=== PATIENT | female | born 1960 | race Caucasian/White ===

== ENCOUNTER 2019-08-13 05:57 | Emergency (ER) | payer OTHER ==
[2019-08-13] MEDS ORDERED: Albuterol/Ipratropium 3.0-0.5 MG/3 ML Neb Soln ONE (06:02)
--- NOTE | 2019-08-13 06:07 | EDM.PDOC ---
ED HPI GENERAL MEDICAL PROBLEM - General Stated Complaint: TROUBLE BREATHING Time Seen by Provider: 08/13/19 06:00 Source of Information: Reports: Patient, Family History Limitations: Reports: Respiratory Distress - History of Present Illness INITIAL COMMENTS - FREE TEXT/NARRATIVE: 59-year-old female arrives to the emergency room in respiratory distress. She has apparently been ill with flulike symptoms and cough for several weeks, was in the clinic at some point but I believe it was felt to be viral. Over the last 3 days she has become much worse, the last 3 or 4 hours she has become severely short of breath. When she arrived to the emergency room she was dusky , mottled, could only speak 1 word at a time and was in severe distress. She denied any fever but did complain of some left upper quadrant and left chest pain for the past several days. Otherwise we really could not get much history from the patient. Preparations were made for emergency treatment of respiratory distress Onset: Gradual Duration: Week(s): (Symptoms up to 3 weeks according to her son) Associated Symptoms: Reports: Cough, Malaise, Shortness of Breath, Weakness - Related Data Allergies Allergy/AdvReac Type Severity Reaction Status Date / Time amoxicillin [Amoxicillin] AdvReac Nausea and Verified 11/12/13 10:56 Vomiting Home Meds: Home Meds Albuterol Sulfate [Proair Hfa] 2 puff IH Q4HR PRN 11/08/13 [History] Amitriptyline [Elavil] 30 mg PO DAILY 11/08/13 [History] Aspirin 325 mg PO DAILY 11/08/13 [History] Cholecalciferol (Vitamin D3) [Vitamin D] 4,000 units PO DAILY 11/08/13 [History] DULoxetine [Cymbalta] 60 mg PO DAILY 11/08/13 [History] Diclofenac Sodium [Voltaren 1%] 1 applic TOP BID PRN 11/08/13 [History] Estrogens, Conjugated [Premarin] 0.3 mg PO DAILY 11/08/13 [History] Lisinopril/Hydrochlorothiazide [Lisinopril-Hctz 10-12.5 mg Tab] 1 each PO DAILY 11/08/13 [History] [place] Carbonate [Eskalith CR] 450 mg PO BEDTIME 11/08/13 [History] Methadone 5 mg PO Q8HR 11/08/13 [History] [place]-3 Fatty Acids [[place]-3] 1,000 mg PO DAILY 11/08/13 [History] Urea [X-Viate] 28.3 gm TP BID 11/08/13 [History] modafiniL [Provigil] 150 mg PO BID 11/08/13 [History] ED ROS GENERAL - Review of Systems Review Of Systems: See Below Constitutional: Reports: Malaise, Weakness HEENT: Denies: Throat Pain Respiratory: Reports: Shortness of Breath, Cough Cardiovascular: Reports: Chest Pain (Left lateral chest pain and left upper abdominal pain) Skin: Reports: Pallor Neurological: Denies: Headache Free Text/Narrative/Comment: Only a very brief selective review of systems was obtainable as the patient was prepared for intubation and was confused and not answering questions consistently. ED EXAM, GENERAL - Physical Exam Exam: See Below Exam Limited By: Respiratory Distress General Appearance: Alert, Severe Distress Eye Exam: Bilateral Eye: PERRL Throat/Mouth: Normal Inspection Head: Atraumatic Respiratory/Chest: Other (Widespread inspiratory and expiratory wheezes, significant rhonchi heard bilaterally) Cardiovascular: Regular Rate, Rhythm, Tachycardia GI/Abdominal: Soft, Tender (Prior to intubation the patient did react with some tenderness to palpation along the left upper) Extremities: Other (Hands and feet were dusky). No: Pedal Edema Neurological: Alert, Confused, Other (Patient was alert but confused due to hypoxia) Skin Exam: Cyanosis (Some cyanosis developing to the extremities and posterior shoulders) Course - Vital Signs Last Recorded V/S: Last Vital Signs Temp 96.9 F 08/13/19 06:19 Pulse 119 H 08/13/19 07:26 Resp 16 08/13/19 07:26 BP 127/73 08/13/19 07:26 Pulse Ox 95 08/13/19 07:26 - Orders/Labs/Meds Labs: Laboratory Tests 08/13/19 08/13/19 08/13/19 Range/Units 06:15 06:15 06:34 WBC 19.0 H (4.5-11.0) K/uL RBC 4.61 (3.30-5.50) M/uL Hgb 15.7 H (12.0-15.0) g/dL Hct 46.0 (36.0-48.0) % MCV 100 H (80-98) fL MCH 34 H (27-31) pg MCHC 34 (32-36) % Plt Count 382 (150-400) K/uL Add Manual Diff Yes Neutrophils % (Manual) 48 (36-66) % Band Neutrophils % 32 H (5-11) % Lymphocytes % (Manual) 11 L (24-44) % Monocytes % (Manual) 5 (2-6) % Eosinophils % (Manual) 1 L (2-4) % Blast Cells % 1 % Puncture Site Lt radial ABG pH 7.192 L* (7.350-7.450) ABG pCO2 51.5 H (35.0-42.0) mmHg ABG pO2 86.3 (75.0-100.0) mmHg ABG HCO3 19.0 L (22.0-26.0) mmol/L ABG Total CO2 17.3 L (21.0-25.0) mmol/L ABG O2 Saturation 90.2 L (95.0-98.0) % ABG O2 Content 20.0 (15.0-23.0) %vol ABG Base Excess -9.5 mm/L ABG Hemoglobin 15.9 (12.0-16.0) g/dL ABG Oxyhemoglobin 89.1 % ABG Carboxyhemoglobin 0.4 (0.0-1.6) % ABG Methemoglobin 0.8 % Todd Test Pass O2 Delivery Device Non rebr mask Oxygen Flow Rate 10 L Sodium 132 L (140-148) mmol/L Potassium 2.9 L* (3.6-5.2) mmol/L Chloride 91 L (100-108) mmol/L Carbon Dioxide 17 L (21-32) mmol/L Anion Gap 26.9 H (5.0-14.0) mmol/L BUN 36 H (7-18) mg/dL Creatinine 2.2 H (0.6-1.0) mg/dL Est Cr Clr Drug Dosing TNP Estimated GFR (MDRD) 23 L (>60) Glucose 98 (74-106) mg/dL Lactic Acid (0.4-2.0) mmol/L Calcium 9.4 (8.5-10.1) mg/dL Total Bilirubin 1.2 H (0.2-1.0) mg/dL AST 288 H (15-37) U/L ALT 98 H (12-78) U/L Alkaline Phosphatase 97 (46-116) U/L Troponin I < 0.017 (0.000-0.056) ng/mL Total Protein 7.9 (6.4-8.2) g/dL Albumin 1.9 L (3.4-5.0) g/dL Globulin 6.0 H (2.3-3.5) g/dL Albumin/Globulin Ratio 0.3 L (1.2-2.2) 08/13/19 Range/Units 06:34 WBC (4.5-11.0) K/uL RBC (3.30-5.50) M/uL Hgb (12.0-15.0) g/dL Hct (36.0-48.0) % MCV (80-98) fL MCH (27-31) pg MCHC (32-36) % Plt Count (150-400) K/uL Add Manual Diff Neutrophils % (Manual) (36-66) % Band Neutrophils % (5-11) % Lymphocytes % (Manual) (24-44) % Monocytes % (Manual) (2-6) % Eosinophils % (Manual) (2-4) % Blast Cells % % Puncture Site ABG pH (7.350-7.450) ABG pCO2 (35.0-42.0) mmHg ABG pO2 (75.0-100.0) mmHg ABG HCO3 (22.0-26.0) mmol/L ABG Total CO2 (21.0-25.0) mmol/L ABG O2 Saturation (95.0-98.0) % ABG O2 Content (15.0-23.0) %vol ABG Base Excess mm/L ABG Hemoglobin (12.0-16.0) g/dL ABG Oxyhemoglobin % ABG Carboxyhemoglobin (0.0-1.6) % ABG Methemoglobin % Todd Test O2 Delivery Device Oxygen Flow Rate L Sodium (140-148) mmol/L Potassium (3.6-5.2) mmol/L Chloride (100-108) mmol/L Carbon Dioxide (21-32) mmol/L Anion Gap (5.0-14.0) mmol/L BUN (7-18) mg/dL Creatinine (0.6-1.0) mg/dL Est Cr Clr Drug Dosing Estimated GFR (MDRD) (>60) Glucose (74-106) mg/dL Lactic Acid 8.7 H (0.4-2.0) mmol/L Calcium (8.5-10.1) mg/dL Total Bilirubin (0.2-1.0) mg/dL AST (15-37) U/L ALT (12-78) U/L Alkaline Phosphatase (46-116) U/L Troponin I (0.000-0.056) ng/mL Total Protein (6.4-8.2) g/dL Albumin (3.4-5.0) g/dL Globulin (2.3-3.5) g/dL Albumin/Globulin Ratio (1.2-2.2) Meds: Medications Discontinued Medications Generic Name Dose Route Start Last Admin Trade Name Freq PRN Reason Stop Dose Admin Albuterol/Ipratropium Confirm 08/13/19 06:02 08/13/19 07:14 Duoneb 3.0-0.5 Mg/3 Ml Administered 08/13/19 06:03 Not Given Dose 3 ml .ROUTE .STK-MED ONE Albuterol/Ipratropium 3 ml 08/13/19 06:45 08/13/19 06:05 Duoneb 3.0-0.5 Mg/3 Ml NEB 08/13/19 06:46 3 ml ONETIME ONE Administration Albuterol/Ipratropium 3 ml 08/13/19 07:05 08/13/19 07:14 Duoneb 3.0-0.5 Mg/3 Ml NEB 08/13/19 07:06 Not Given ONETIME ONE Etomidate 30 mg 08/13/19 07:19 08/13/19 07:22 Amidate IVPUSH 08/13/19 07:20 30 mg ONETIME ONE Administration Propofol Confirm 08/13/19 06:36 08/13/19 06:42 Diprivan 100 Ml Administered 08/13/19 06:37 Not Given Dose 100 mls @ as directed .ROUTE .STK-MED ONE Propofol 100 mls @ 2.73 mls/hr 08/13/19 06:45 08/13/19 07:14 Diprivan 100 Ml IV 20 mcg/kg/min TITRATE ERICKSON 10.92 mls/hr Titration Protocol 5 MCG/KG/MIN Piperacillin Sod/Tazobactam 100 mls @ 100 mls/hr 08/13/19 06:44 08/13/19 07: 04 Sod 4.5 gm/ Sodium Chloride IV 08/13/19 07:43 100 mls/hr ONETIME ONE Administration Levofloxacin/Dextrose 750 mg/ 150 mls @ 100 mls/hr 08/13/19 06:44 08/13/19 06 :52 Premix IV 08/13/19 08:13 100 mls/hr ONETIME ONE Administration Propofol 100 mg 08/13/19 06:45 Diprivan 20 Ml .ROUTE 08/13/19 06:46 .STK-MED ONE Rocuronium [place] 50 mg 08/13/19 06:33 08/13/19 07:17 Zemuron IVPUSH 08/13/19 06:34 50 mg NOW ONE Administration Rocuronium [place] Confirm 08/13/19 06:33 08/13/19 07:18 Zemuron Administered 08/13/19 06:34 Not Given Dose 50 mg .ROUTE .STK-MED ONE Succinylcholine Chloride Confirm 08/13/19 06:18 08/13/19 07:16 Quelicin Administered 08/13/19 06:19 Not Given Dose 200 mg .ROUTE .STK-MED ONE Succinylcholine Chloride 75 mg 08/13/19 06:30 08/13/19 06:25 Quelicin IV 08/13/19 06:31 75 mg ONETIME ONE Administration - Re-Assessments/Exams Free Text/Narrative Re-Assessment/Exam: 08/13/19 07:02 Patient was given a nonrebreather, 10 L of oxygen and after the initial physical exam a DuoNeb was ordered. An urgent 1 view chest x-ray was obtained which showed a complete whiteout of the left lung, the right lung was clear. At this point the focus was shifted from congestive heart failure to pneumonia treatment. Preparations were made for intubation. Patient was given 75 mg of succinylcholine, then 30 mg of etomidate and then with the assistance of a glide scope was intubated with a 7.0 ET tube. O2 saturations dropped to 85% during intubation briefly. Patient was then given a propofol drip for sedation as well as 50 mg of rocuronium. Blood gases returned with a pH of 7.16, PCO2 was 55.5. A brief phone consultation with the hospitalist service here in [place] recommended transfer because of the patient's significant infectious state, young age, and the benefit of having infectious disease and pulmonology as well as critical care in [place]. After blood cultures were obtained, 4.5 g of IV Zosyn and 750 mg of IV levofloxacin was started. Patient remained stable and sedated and was transferred by air after being accepted by at 6: 40 AM, will be going to [facility]. Total critical care time was 90 minutes. 08/13/19 07:16 White count was 19,000, hemoglobin 15.7. Troponin was 0. 08/13/19 07:16 Lactic acid 8.7, creatinine 2.2. Aggressive hydration was continued. Arrangements were made for the patient to be flown to [place]. Departure - Departure Time of Disposition: 08:32 Disposition: DC/Tfer to [facility] 02 Condition: Critical Clinical Impression: Acute respiratory distress Pneumonia Qualifiers: Pneumonia type: due to unspecified organism Laterality: left Lung location: unspecified part of lung Qualified Code(s): J18.9 - Pneumonia, unspecified organism - Discharge Information Referrals: PCP,None [Primary Care Provider] - Forms: ED Department Discharge Critical Care Note - Critical Care Note Total Time (mins): 90 Sepsis Event Note - Focused Exam Date Exam was Performed: 08/17/19 Time Exam was Performed: 07:09
[2019-08-13] MEDS ORDERED: Succinylcholine 200 MG/10 ML MDV ONE (06:18)
[2019-08-13] MEDS ORDERED: Succinylcholine 200 MG/10 ML MDV IV ONE (06:30)
[2019-08-13] MEDS ORDERED: Rocuronium 50 MG/5 ML Vial IVPUSH ONE (06:33)
[2019-08-13] MEDS ORDERED: Rocuronium 50 MG/5 ML Vial ONE (06:33)
[2019-08-13] MEDS ORDERED: propofoL 100 ML ONE (06:36)
[2019-08-13] MEDS ORDERED: Piperacillin/Tazobactam 4.5 GM in Sodium Chloride 0.9% 100 ML IV ONE (06:44)
[2019-08-13] MEDS ORDERED: Levofloxacin/Dextrose 5%-Water 750 MG in Premix Bag 1 BAG IV ONE (06:44)
[2019-08-13] MEDS ORDERED: Propofol 200 MG/20 ML SDV ONE (06:45)
[2019-08-13] MEDS ORDERED: Albuterol/Ipratropium 3.0-0.5 MG/3 ML Neb Soln NEB ONE ×2 (06:45→07:05)
[2019-08-13] MEDS ORDERED: propofoL 100 ML IV SCH (06:45)
--- NOTE | 2019-08-13 06:51 | CRLCR ---
INDICATION: Dyspnea TECHNIQUE: Chest 1 view. COMPARISON: None FINDINGS: There is completely opacification of the left upper lobe with minimal air bronchograms noted. There is less dense opacity in the left retrocardiac region. The left lung base is relatively spared. There is consolidation in the medial right apex. No definite pleural effusion. No pneumothorax. No acute osseous abnormality identified. IMPRESSION: Dense consolidation in the left upper lobe as well as less dense opacity in the left retrocardiac region and consolidation in the medial right apex. CT chest may be useful for further evaluation. Dictated by Joey Wyatt MD @ 08/13/2019 6:49:23 AM Dictated by: Joey Wyatt MD @ 08/13/2019 06:49:28 (Electronically Signed)
--- NOTE | 2019-08-13 07:05 | CRLCR ---
INDICATION: Post intubation. COMPARISON: Chest x-ray done earlier same day. FINDINGS: Two portable AP views of the chest obtained. One timed at 06:42 hours and the other at 06:44 hours. There has been placement of a endotracheal tube. The fill the timed at 06:42 hours the endotracheal tube tip is 1.2 cm above the scott. On the film timed 06:44 hours the endotracheal tube tip is now 2.2 cm above the scott. There is continued dense consolidation in the left upper lobe similar to the previous the study. There is also consolidation in the medial right apex similar the previous the study. The cardiac silhouette is stable. The pulmonary vasculature is within normal limits. IMPRESSION: Interval placement and endotracheal tube with the tip 2.2 cm above the scott on the film time 06:44hours. Continued dense consolidation left upper lobe and a consolidation in the medial right apex. Dictated by Terrell Adams MD @ 08/13/2019 7:04:32 AM Dictated by: Terrell Adams MD @ 08/13/2019 07:04:39 (Electronically Signed)
[2019-08-13] MEDS ORDERED: Etomidate 2 MG/ML 20 ML SDV IVPUSH ONE (07:19)
--- NOTE | 2019-08-15 09:15 | CRLCR ---
INDICATION: Post intubation. COMPARISON: Chest x-ray done earlier same day. FINDINGS: Two portable AP views of the chest obtained. One timed at 06:42 hours and the other at 06:44 hours. There has been placement of a endotracheal tube. The fill the timed at 06:42 hours the endotracheal tube tip is 1.2 cm above the scott. On the film timed 06:44 hours the endotracheal tube tip is now 2.2 cm above the scott. There is continued dense consolidation in the left upper lobe similar to the previous the study. There is also consolidation in the medial right apex similar the previous the study. The cardiac silhouette is stable. The pulmonary vasculature is within normal limits. IMPRESSION: Interval placement and endotracheal tube with the tip 2.2 cm above the scott on the film time 06:44hours. Continued dense consolidation left upper lobe and a consolidation in the medial right apex. Dictated by Terrell Adams MD @ 08/13/2019 7:04:32 AM Dictated by: Terrell Adams MD @ 08/13/2019 07:04:39 (Electronically Signed) Dictated by: Terrell Adams MD 08/13/19 at 0704 , 0647 T: , Doc Number: [id number] Copies To: Leon Barrientos MD; PCP,None~ MTDD
== END 2019-08-13 07:40 ==
LOC: JP.ED 05:57
DX: J18.9 Pneumonia, unspecified organism (principal); Z88.1 Allergy status to other antibiotic agents; Z79.899 Other long term (current) drug therapy
CPT/HCPCS: 31500; 36415; 36600; 51702; 71045; 80053; 82803; 83605; 84484; 85025; 87040; 87077; 87184; 94640; 96365; 96368; 99291; 99292; J0330; J1956; J2543; J2704; J3490; J7050; J7620-GY

== ENCOUNTER 2019-09-13 22:10 | Emergency (ER) | payer OTHER ==
[2019-09-13] MEDS ORDERED: LORazepam 0.5 MG Tab PO ONE (23:00)
--- NOTE | 2019-09-14 00:16 | EDM.PDOC ---
ED HPI GENERAL MEDICAL PROBLEM - General Chief Complaint: Cardiovascular Problem Stated Complaint: HIGH BLOOD PRESSURE Time Seen by Provider: 09/13/19 23:50 - History of Present Illness INITIAL COMMENTS - FREE TEXT/NARRATIVE: This is a 59-year-old female with recent hospitalization for pneumonia and septic shock complicated by renal failure who presents with concerns of hypertension. She returned from a trip to [place] this evening, was delayed getting her antihypertensive agents taken, and noted her SBP's to be in the 170s. She became very anxious about this, rechecking her blood pressure repeatedly and noting recurrent high pressures. She denies any dyspnea or chest pain. She reports that she was recently seen by her manager camp in [place] and that her cardiac function is good, EF of approximately 45%. Treatments SAFETY MANAGER: Reports: Acetaminophen - Related Data Allergies Allergy/AdvReac Type Severity Reaction Status Date / Time amoxicillin [Amoxicillin] AdvReac Nausea and Verified 09/13/19 22:39 Vomiting Home Meds: Home Meds Albuterol Sulfate [Proair Hfa] 2 puff IH Q4HR PRN 11/08/13 [History] Amitriptyline [Elavil] 30 mg PO DAILY 11/08/13 [History] Aspirin 325 mg PO DAILY 11/08/13 [History] Cholecalciferol (Vitamin D3) [Vitamin D] 4,000 units PO DAILY 11/08/13 [History] DULoxetine [Cymbalta] 60 mg PO DAILY 11/08/13 [History] Diclofenac Sodium [Voltaren 1%] 1 applic TOP BID PRN 11/08/13 [History] Estrogens, Conjugated [Premarin] 0.3 mg PO DAILY 11/08/13 [History] Lisinopril/Hydrochlorothiazide [Lisinopril-Hctz 10-12.5 mg Tab] 1 each PO DAILY 11/08/13 [History] [place] Carbonate [Eskalith CR] 450 mg PO BEDTIME 11/08/13 [History] Methadone 5 mg PO Q8HR 11/08/13 [History] [place]-3 Fatty Acids [[place]-3] 1,000 mg PO DAILY 11/08/13 [History] Urea [X-Viate] 28.3 gm TP BID 11/08/13 [History] modafiniL [Provigil] 150 mg PO BID 11/08/13 [History] Metoprolol Succinate [Toprol XL] 25 mg PO DAILY 09/13/19 [History] Metoprolol Tartrate 12.5 mg PO BID 09/13/19 [History] Past Medical History Cardiovascular History: Reports: Hypertension Respiratory History: Reports: Pneumonia, Recurrent, Other (See Below) Other Respiratory History: Intubated Genitourinary History: Reports: Dialysis, UTI, Recurrent, Other (See Below) Other Genitourinary History: currently has a dialysis port right chest which is being removed next week (09-20-19) 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: Endocrine/Metabolic History: Reports: Obesity/BMI 30+ - Infectious Disease History Infectious Disease History: Reports: Chicken Pox - Past Surgical History Cardiovascular Surgical History: Reports: Other (See Below) Other Cardiovascular Surgeries/Procedures: angio Female Surgical History: Reports: Hysterectomy Social & Family History - Tobacco Use Smoking Status *Q: Never Smoker Second Hand Smoke Exposure: No - Caffeine Use Caffeine Use: Reports: Coffee - Recreational Drug Use Recreational Drug Use: No ED ROS GENERAL - Review of Systems Review Of Systems: See Below Constitutional: Reports: No Symptoms HEENT: Reports: No Symptoms Respiratory: Reports: No Symptoms Cardiovascular: Reports: No Symptoms Endocrine: Reports: No Symptoms GI/Abdominal: Reports: No Symptoms : Reports: No Symptoms Musculoskeletal: Reports: No Symptoms Skin: Reports: No Symptoms Neurological: Reports: No Symptoms Psychiatric: Reports: No Symptoms Hematologic/Lymphatic: Reports: No Symptoms Immunologic: Reports: No Symptoms ED EXAM, GENERAL - Physical Exam Exam: See Below Exam Limited By: No Limitations General Appearance: Alert, No Apparent Distress Ears: Normal External Exam Nose: Normal Inspection Throat/Mouth: Normal Inspection Head: Atraumatic, Normocephalic Neck: Normal Inspection Respiratory/Chest: No Respiratory Distress, Lungs Clear Cardiovascular: Regular Rate, Rhythm GI/Abdominal: No Distention Back Exam: Normal Inspection Extremities: No: Pedal Edema Neurological: Alert, Oriented Psychiatric: Normal Affect, Normal Mood Skin Exam: Warm, Dry Course - Vital Signs Last Recorded V/S: Last Vital Signs Temp 36.2 C 09/13/19 22:40 Pulse 80 09/14/19 00:13 Resp 24 H 09/14/19 00:13 BP 157/95 H 09/14/19 00:13 Pulse Ox 97 09/14/19 00:13 - Orders/Labs/Meds Meds: Medications Discontinued Medications Generic Name Dose Route Start Last Admin Trade Name Mario PRN Reason Stop Dose Admin Lorazepam 0.5 mg 09/13/19 23:00 09/13/19 23:08 Ativan PO 09/13/19 23:01 0.5 mg ONETIME ONE Administration - Re-Assessments/Exams Free Text/Narrative Re-Assessment/Exam: This is a 59-year-old female presents with asymptomatic hypertension. Initially quite anxious when she arrived in the ED, systolics nearing 200. With coaching and a small dose of Ativan BPs were down to the 140s and 150s. She has no evidence of any end organ dysfunction or heart failure, she does not have a severe underlying cardiomyopathy. I did not feel that we need to treat her BP in the ED this evening. Her manager camp just changed her antihypertensive medications and she will start her new dosing tomorrow. She has plans for follow-up with her PCP next week for recheck. 09/14/19 00:25 Departure - Departure Time of Disposition: 00:15 Disposition: Home, Self-Care 01 Clinical Impression: Hypertension Qualifiers: Hypertension type: unspecified secondary hypertension Qualified Code(s): I15.9 - Secondary hypertension, unspecified Instructions: Hypertension, Adult, [id number] Referrals: PCP,None [Primary Care Provider] - Forms: ED Department Discharge Additional Instructions: As discussed, no further treatment of your blood pressure is required in the emergency room tonight. Please feel free to decrease the frequency of your blood pressure checks. You should follow-up with your primary doctor as planned next week for recheck, you can discuss any necessary changes to medications at this time. Return to the emergency department for new symptoms such as chest pain or shortness of breath. Sepsis Event Note - Evaluation Sepsis Screening Result: No Definite Risk - Focused Exam Vital Signs: Vital Signs Temp Pulse Resp BP Pulse Ox 09/14/19 00:13 80 24 H 157/95 H 97 09/13/19 22:50 88 14 150/95 H 98 09/13/19 22:40 36.2 C 84 16 154/98 H 98 09/13/19 22:25 36.2 C 88 16 196/113 H 98 Date Exam was Performed: 09/14/19 Time Exam was Performed: 00:21
== END 2019-09-14 00:32 | disposition home or self-care (01) ==
LOC: JP.ED 22:10
DX: I15.9 Secondary hypertension, unspecified (principal); I10 Essential (primary) hypertension; E66.9 Obesity, unspecified; Z88.1 Allergy status to other antibiotic agents; Z79.82 Long term (current) use of aspirin; Z79.899 Other long term (current) drug therapy
CPT/HCPCS: 99283; A9270

== ENCOUNTER 2020-01-30 15:22 | Emergency (ER) | payer OTHER ==
--- NOTE | 2020-01-30 17:42 | EDM.PDOC ---
ED HPI GENERAL MEDICAL PROBLEM - General Chief Complaint: General Stated Complaint: CHILLY AND PAIN Time Seen by Provider: 01/30/20 16:07 Source of Information: Reports: Patient History Limitations: Reports: No Limitations - History of Present Illness INITIAL COMMENTS - FREE TEXT/NARRATIVE: 59-year-old female history of multiorgan failure from sepsis last July presents to the emergency department with chills, fever, nausea, vomiting and diarrhea since last . She has had 3 loose stools today but no blood. She is vomited 2 times today. He notes generalized abdominal discomfort before bowel movements. She is getting some fluids and is urinating a regular basis. He was on antibiotics 3 or 4 weeks ago for an ear infection. She is not been in contact with anyone with COVID nor has she been away from her home since discharge from the hospital in August. 8 over meatloaf last couple days that she felt may have been spoiled. Denies any other symptoms. She is a smoker. She is on medications for depression and bipolar disorder. She was recently started on Depakote. Bilateral Feet Pain Score (Numeric/FACES): 3 Bilateral Hand Pain Score (Numeric/FACES): 3 - Related Data Allergies Allergy/AdvReac Type Severity Reaction Status Date / Time bupropion [From Wellbutrin] Allergy Seizure Verified 01/30/20 16:10 amoxicillin [Amoxicillin] AdvReac Nausea and Verified 09/13/19 22:39 Vomiting Home Meds: Home Meds Aspirin 81 mg PO DAILY 11/08/13 [History] Metoprolol Succinate [Toprol XL] 25 mg PO DAILY 09/13/19 [History] ALPRAZolam [Alprazolam] 1 mg PO PRN 01/30/20 [History] Divalproex Sodium [Divalproex Sodium ER] 125 mg PO BID 01/30/20 [History] Potassium Citrate [Potassium Citrate ER] 20 meq PO DAILY 01/30/20 [History] amLODIPine Besylate [Amlodipine Besylate] 5 mg PO DAILY 01/30/20 [History] Past Medical History HEENT History: Reports: Other (See Below) Other HEENT History: recent otitis media Cardiovascular History: Reports: Hypertension Respiratory History: Reports: Pneumonia, Recurrent, Other (See Below) Other Respiratory History: Intubated Genitourinary History: Reports: Dialysis, UTI, Recurrent, Other (See Below) Other Genitourinary History: currently has a dialysis port right chest which is being removed next week (09-20-19) 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: Musculoskeletal History: Reports: Arthritis, Fracture Psychiatric History: Reports: Anxiety, Bipolar, Depression Endocrine/Metabolic History: Reports: Obesity/BMI 30+ - Infectious Disease History Infectious Disease History: Reports: Chicken Pox - Past Surgical History Cardiovascular Surgical History: Reports: Other (See Below) Other Cardiovascular Surgeries/Procedures: angio Female Surgical History: Reports: Hysterectomy Social & Family History - Tobacco Use Smoking Status *Q: Current Every Day Smoker Years of Tobacco use: 40 Packs/Tins Daily: 0.2 - Caffeine Use Caffeine Use: Reports: Tea - Recreational Drug Use Recreational Drug Use: No ED ROS GENERAL - Review of Systems Review Of Systems: See Below Constitutional: Reports: Fever, Chills, Diaphoresis HEENT: Reports: No Symptoms Respiratory: Reports: Cough Cardiovascular: Denies: Chest Pain Endocrine: Denies: Polydypsia, Polyuria GI/Abdominal: Reports: Abdominal Pain, Diarrhea, Nausea, Vomiting : Denies: Dysuria Skin: Reports: No Symptoms ED EXAM, GENERAL - Physical Exam Exam: See Below Exam Limited By: No Limitations General Appearance: Alert, WD/WN, No Apparent Distress Nose: Normal Inspection Throat/Mouth: Normal Inspection, Normal Lips Neck: Normal Inspection Respiratory/Chest: No Respiratory Distress, Lungs Clear, Normal Breath Sounds Cardiovascular: Normal Peripheral Pulses GI/Abdominal: Non-Tender, No Distention Neurological: Alert, Oriented Course - Vital Signs Text/Narrative:: Patient presents to the ER with chills, fever and sweating. She states she has diarrhea but she has 3 small stools per day. She reports nausea and vomiting and vomited twice today. In the ED she did not vomit. Her potassium was low at 2.5 and she was given supplemental IV and p.o. potassium. Her lactic acid was elevated at 2.4 and she received a liter and a half of normal saline. A second lactic acid done 2 hours after her initial 1 was 2.3. Her CRP is elevated at 1.2 but her white count is normal and urine is unremarkable. Chest x-ray appeared normal to me. She did not have any stools while in the ED. Stool for C. difficile and culture was ordered. She can obtain these at home and bring them to the hospital for analysis. He has potassium at home and was advised to take it as directed. She should be seen again in the clinic in 1 to 2 days to make sure she is doing well. Will drink plenty of fluids. Return to the ED if she has any increased problems or concerns. Last Recorded V/S: Last Vital Signs Temp 36.3 C 01/30/20 16:33 Pulse 98 01/30/20 16:33 Resp 18 01/30/20 16:33 BP 141/98 H 01/30/20 16:33 Pulse Ox 96 01/30/20 16:33 - Orders/Labs/Meds Orders: Active Orders 24 hr Category Date Time Status EKG Documentation Completion [RC] ASDIRECTED Care 01/30/20 17:37 Active Chest 2V [CR] Stat Exams 01/30/20 17:32 Taken CULTURE BLOOD [BC] Urgent Lab 01/30/20 17:40 Received CULTURE BLOOD [BC] Urgent Lab 01/30/20 17:40 Received CULTURE STOOL + SHIGATOX [RM] Stat Lab 01/30/20 17:35 Ordered Clostridium [CLOS DIFFICILE PCR W/REFLEX] [RM] Stat Lab 01/30/20 17:33 Ordered Potassium Chloride [KCL 20 MEQ in Water 100 ML] 20 meq Med 01/30/20 18:28 Active Premix Bag 1 bag IV ONETIME Sodium Chloride 0.9% [Normal Saline] 1,000 ml Med 01/30/20 17:45 Active IV ASDIRECTED Blood Culture x2 Reflex Set [OM.PC] Urgent Oth 01/30/20 17:32 Ordered EKG 12 Lead [EK] Stat Ther 01/30/20 17:37 Ordered Medication Orders Sodium Chloride (Normal Saline) 1,000 mls @ 1,000 mls/hr IV ASDIRECTED ERICKSON Last Admin: 01/30/20 19:13 Dose: 1,000 mls/hr Documented by: Infusion: 01/30/20 19:10 Dose: 1,000 mls/hr Documented by: Admin: 01/30/20 18:10 Dose: 1,000 mls/hr Documented by: PREILOR Potassium Chloride 20 meq/ (Premix) 100 mls @ 50 mls/hr IV ONETIME ONE Stop: 01/30/20 20:27 Last Admin: 01/30/20 18:44 Dose: 50 mls/hr Documented by: PREILOR Labs: Laboratory Tests 01/30/20 01/30/20 01/30/20 Range/Units 17:36 17:36 17:40 WBC 12.5 H (4.5-11.0) K/uL RBC 4.16 (3.30-5.50) M/uL Hgb 14.4 (12.0-15.0) g/dL Hct 42.3 (36.0-48.0) % MCV 102 H (80-98) fL MCH 35 H (27-31) pg MCHC 34 (32-36) % Plt Count 333 (150-400) K/uL Neut % (Auto) 74 H (36-66) % Lymph % (Auto) 18 L (24-44) % [place] % (Auto) 7 H (2-6) % Eos % (Auto) 2 (2-4) % Baso % (Auto) 0 (0-1) % Sodium (140-148) mmol/L Potassium (3.6-5.2) mmol/L Chloride (100-108) mmol/L Carbon Dioxide (21-32) mmol/L Anion Gap (5.0-14.0) mmol/L BUN (7-18) mg/dL Creatinine (0.6-1.0) mg/dL Est Cr Clr Drug Dosing mL/min Estimated GFR (MDRD) (>60) Glucose (74-106) mg/dL Lactic Acid (0.4-2.0) mmol/L Calcium (8.5-10.1) mg/dL Total Bilirubin (0.2-1.0) mg/dL AST (15-37) U/L ALT (12-78) U/L Alkaline Phosphatase (46-116) U/L Troponin I < 0.017 (0.000-0.056) ng/mL C-Reactive Protein (0.0-0.3) mg/dL NT-Pro-B Natriuret Pep 140 H (5-125) pg/mL Total Protein (6.4-8.2) g/dL Albumin (3.4-5.0) g/dL Globulin (2.3-3.5) g/dL Albumin/Globulin Ratio (1.2-2.2) Urine Color (YELLOW) Urine Appearance (CLEAR) Urine pH (5.0-8.0) Ur Specific [place] (1.008-1.030) Urine Protein (NEGATIVE) mg/dL Urine Glucose (UA) (NEGATIVE) mg/dL Urine Ketones (NEGATIVE) mg/dL Urine Occult Blood (NEGATIVE) Urine Nitrite (NEGATIVE) Urine Bilirubin (NEGATIVE) Urine Urobilinogen (0.2-1.0) EU/dL Ur Leukocyte Esterase (NEGATIVE) Urine RBC (0-5) Urine WBC (0-5) Ur Epithelial Cells Urine Bacteria 01/30/20 01/30/20 01/30/20 Range/Units 17:40 17:40 17:40 WBC (4.5-11.0) K/uL RBC (3.30-5.50) M/uL Hgb (12.0-15.0) g/dL Hct (36.0-48.0) % MCV (80-98) fL MCH (27-31) pg MCHC (32-36) % Plt Count (150-400) K/uL Neut % (Auto) (36-66) % Lymph % (Auto) (24-44) % [place] % (Auto) (2-6) % Eos % (Auto) (2-4) % Baso % (Auto) (0-1) % Sodium 137 L (140-148) mmol/L Potassium 2.5 L* (3.6-5.2) mmol/L Chloride 96 L (100-108) mmol/L Carbon Dioxide 31 (21-32) mmol/L Anion Gap 12.5 (5.0-14.0) mmol/L BUN 8 D (7-18) mg/dL Creatinine 1.0 D (0.6-1.0) mg/dL Est Cr Clr Drug Dosing 44.58 mL/min Estimated GFR (MDRD) 57 L (>60) Glucose 120 H (74-106) mg/dL Lactic Acid 2.4 H (0.4-2.0) mmol/L Calcium 9.1 (8.5-10.1) mg/dL Total Bilirubin 0.6 (0.2-1.0) mg/dL AST 87 H (15-37) U/L ALT 84 H (12-78) U/L Alkaline Phosphatase 87 (46-116) U/L Troponin I (0.000-0.056) ng/mL C-Reactive Protein 1.21 H (0.0-0.3) mg/dL NT-Pro-B Natriuret Pep (5-125) pg/mL Total Protein 8.1 (6.4-8.2) g/dL Albumin 3.8 (3.4-5.0) g/dL Globulin 4.3 H (2.3-3.5) g/dL Albumin/Globulin Ratio 0.9 L (1.2-2.2) Urine Color (YELLOW) Urine Appearance (CLEAR) Urine pH (5.0-8.0) Ur Specific [place] (1.008-1.030) Urine Protein (NEGATIVE) mg/dL Urine Glucose (UA) (NEGATIVE) mg/dL Urine Ketones (NEGATIVE) mg/dL Urine Occult Blood (NEGATIVE) Urine Nitrite (NEGATIVE) Urine Bilirubin (NEGATIVE) Urine Urobilinogen (0.2-1.0) EU/dL Ur Leukocyte Esterase (NEGATIVE) Urine RBC (0-5) Urine WBC (0-5) Ur Epithelial Cells Urine Bacteria 01/30/20 01/30/20 Range/Units 19:04 19:40 WBC (4.5-11.0) K/uL RBC (3.30-5.50) M/uL Hgb (12.0-15.0) g/dL Hct (36.0-48.0) % MCV (80-98) fL MCH (27-31) pg MCHC (32-36) % Plt Count (150-400) K/uL Neut % (Auto) (36-66) % Lymph % (Auto) (24-44) % [place] % (Auto) (2-6) % Eos % (Auto) (2-4) % Baso % (Auto) (0-1) % Sodium (140-148) mmol/L Potassium (3.6-5.2) mmol/L Chloride (100-108) mmol/L Carbon Dioxide (21-32) mmol/L Anion Gap (5.0-14.0) mmol/L BUN (7-18) mg/dL Creatinine (0.6-1.0) mg/dL Est Cr Clr Drug Dosing mL/min Estimated GFR (MDRD) (>60) Glucose (74-106) mg/dL Lactic Acid 2.3 H (0.4-2.0) mmol/L Calcium (8.5-10.1) mg/dL Total Bilirubin (0.2-1.0) mg/dL AST (15-37) U/L ALT (12-78) U/L Alkaline Phosphatase (46-116) U/L Troponin I (0.000-0.056) ng/mL C-Reactive Protein (0.0-0.3) mg/dL NT-Pro-B Natriuret Pep (5-125) pg/mL Total Protein (6.4-8.2) g/dL Albumin (3.4-5.0) g/dL Globulin (2.3-3.5) g/dL Albumin/Globulin Ratio (1.2-2.2) Urine Color Yellow (YELLOW) Urine Appearance Slightly cloudy A (CLEAR) Urine pH 6.0 (5.0-8.0) Ur Specific [place] 1.015 (1.008-1.030) Urine Protein Negative (NEGATIVE) mg/dL Urine Glucose (UA) Negative (NEGATIVE) mg/dL Urine Ketones Negative (NEGATIVE) mg/dL Urine Occult Blood Trace-lysed H (NEGATIVE) Urine Nitrite Negative (NEGATIVE) Urine Bilirubin Negative (NEGATIVE) Urine Urobilinogen 0.2 (0.2-1.0) EU/dL Ur Leukocyte Esterase Negative (NEGATIVE) Urine RBC 0-5 (0-5) Urine WBC 0-5 (0-5) Ur Epithelial Cells Many Urine Bacteria Many Meds: Medications Generic Name Dose Route Start Last Admin Trade Name Freq PRN Reason Stop Dose Admin Sodium Chloride 1,000 mls @ 1,000 mls/hr 01/30/20 17:45 01/30/20 19:13 Normal Saline IV 1,000 mls/hr ASDIRECTED ERICKSON Administration Potassium Chloride 20 meq/ 100 mls @ 50 mls/hr 01/30/20 18:28 01/30/20 18:44 Premix IV 01/30/20 20:27 50 mls/hr ONETIME ONE Administration Discontinued Medications Generic Name Dose Route Start Last Admin Trade Name Freq PRN Reason Stop Dose Admin Acetaminophen 650 mg 01/30/20 19:44 01/30/20 19:58 Tylenol PO 01/30/20 19:45 650 mg NOW ONE Administration Lidocaine HCl 5 ml 01/30/20 18:36 01/30/20 18:44 Xylocaine-Mpf 1% INJECT 01/30/20 18:37 5 ml ONETIME ONE Administration Potassium Chloride 20 meq 01/30/20 18:29 01/30/20 18:40 Klor-Con M20 PO 01/30/20 18:30 20 meq ONETIME ONE Administration Departure - Departure Time of Disposition: 20:23 Disposition: Home, Self-Care 01 Condition: Good Clinical Impression: Gastroenteritis - Discharge Information *PRESCRIPTION DRUG MONITORING PROGRAM REVIEWED*: No *COPY OF PRESCRIPTION DRUG MONITORING REPORT IN PATIENT JEANNETTE: No Referrals: New Winter MD [Primary Care Provider] - Forms: ED Department Discharge Additional Instructions: Take your potassium as prescribed. Bring stool samples into the hospital lab for analysis. Drink plenty of fluids and follow-up with your doctor in 1 or 2 days. Return to the ER if you have increased problems or concerns. Sepsis Event Note (ED) - Evaluation Sepsis Screening Result: No Definite Risk - Focused Exam Vital Signs: Vital Signs Temp Pulse Resp BP Pulse Ox 01/30/20 16:33 36.3 C 98 18 141/98 H 96 - My Orders Last 24 Hours: My Active Orders 01/30/20 17:32 Chest 2V [CR] Stat Blood Culture x2 Reflex Set [OM.PC] Urgent 01/30/20 17:33 Clostridium [CLOS DIFFICILE PCR W/REFLEX] [RM] Stat 01/30/20 17:35 CULTURE STOOL + SHIGATOX [RM] Stat 01/30/20 17:37 EKG Documentation Completion [RC] ASDIRECTED EKG 12 Lead [EK] Stat 01/30/20 17:40 CULTURE BLOOD [BC] Urgent CULTURE BLOOD [BC] Urgent 01/30/20 17:45 Sodium Chloride 0.9% [Normal Saline] 1,000 ml IV ASDIRECTED 01/30/20 18:28 Potassium Chloride [KCL 20 MEQ in Water 100 ML] 20 meq Premix Bag 1 bag IV ONETIME - Assessment/Plan Last 24 Hours: My Active Orders 01/30/20 17:32 Chest 2V [CR] Stat Blood Culture x2 Reflex Set [OM.PC] Urgent 01/30/20 17:33 Clostridium [CLOS DIFFICILE PCR W/REFLEX] [RM] Stat 01/30/20 17:35 CULTURE STOOL + SHIGATOX [RM] Stat 01/30/20 17:37 EKG Documentation Completion [RC] ASDIRECTED EKG 12 Lead [EK] Stat 01/30/20 17:40 CULTURE BLOOD [BC] Urgent CULTURE BLOOD [BC] Urgent 01/30/20 17:45 Sodium Chloride 0.9% [Normal Saline] 1,000 ml IV ASDIRECTED 01/30/20 18:28 Potassium Chloride [KCL 20 MEQ in Water 100 ML] 20 meq Premix Bag 1 bag IV ONETIME
[2020-01-30] MEDS: Sodium Chloride 0.9% 1,000 ML IV SCH ×2 (18:10→19:13)
[2020-01-30] MEDS ORDERED: Potassium Chloride 20 MEQ in Premix Bag 1 BAG IV ONE (18:28)
[2020-01-30] MEDS ORDERED: Potassium Chloride 20 MEQ Tab.ER PO ONE (18:29)
[2020-01-30] MEDS ORDERED: Acetaminophen 325 MG Tab PO ONE (19:44)
--- NOTE | 2020-02-02 08:49 | CR ---
CHEST: 2 view CLINICAL HISTORY:Cough COMPARISON:July 2019 FINDINGS: The heart size, pulmonary vascularity and hilar structures are normal. There is some patchy density in the right middle lobe. IMPRESSION: Patchy right middle lobe density may represent some patchy atelectasis or infiltrate
== END 2020-01-30 20:52 | disposition home or self-care (01) ==
LOC: JP.ED 15:22
DX: K52.9 Noninfective gastroenteritis and colitis, unspecified (principal); I10 Essential (primary) hypertension; M19.90 Unspecified osteoarthritis, unspecified site; R56.9 Unspecified convulsions; E66.9 Obesity, unspecified; Z68.38 Body mass index [BMI] 38.0-38.9, adult; Z88.1 Allergy status to other antibiotic agents; Z88.8 Allergy status to other drugs, medicaments and biological substances; Z79.82 Long term (current) use of aspirin; Z79.899 Other long term (current) drug therapy
CPT/HCPCS: 36415; 71046; 80053; 81001; 83605; 83880; 84484; 85025; 86140; 87040; 93005; 96360; 96361; 99284; A9270; J2001; J3480; J7030; 93010

== ENCOUNTER 2020-08-16 22:21 | Emergency (ER) | payer OTHER ==
--- NOTE | 2020-08-16 22:59 | EDM.PDOC ---
ED HPI GENERAL MEDICAL PROBLEM - General Chief Complaint: Lower Extremity Injury/Pain Stated Complaint: LEG PAIN Time Seen by Provider: 08/16/20 22:57 Source of Information: Reports: Patient, Old Records History Limitations: Reports: No Limitations - History of Present Illness INITIAL COMMENTS - FREE TEXT/NARRATIVE: Shefali is a 60-year-old female presenting to the ED for evaluation of left foot pain and swelling causing it difficult for her to walk. Patient reportedly just completed a course of prednisone that she was placed on for acute flare of gout. The patient states that she has not previously had gout. She does report that she has been having intermittent but increasing frequency of sharp, stabbing pain down from the knees to the feet bilaterally since this morning when she awoke. She barely was able to make it to the bathroom because of the pain. The episodes last 15 to 20 seconds and are followed by burning sensation in the legs. She does have a past medical history significant for a non-ischemic cardiomyopathy, however, her most recent echocardiogram on 12/10/2019 showed left ventricular ejection fraction of 60 to 65% which is improved from her previous reported EF. In addition to this she has a history for obesity, depression, bipolar 1 disorder, hypertension, tobacco and marijuana use, vitamin D insufficiency, osteoarthritis of multiple joints, alcohol abuse, and hepatitis C. She reportedly has been taking vitamin D3 20,000 units a day for the last 3 weeks. This occurred because she mistook what she read in her discharge instructions from her last visit and instead of taking 4000 units as prescribed she was taking 4 pills of the 5000 unit capsules. The patient attributes all of her symptoms to her critical illness last year due to Covid and states that she has been on a long road to recovery since that episode. Bilateral Leg Pain Score (Numeric/FACES): 7 - Related Data Allergies Allergy/AdvReac Type Severity Reaction Status Date / Time bupropion [From Wellbutrin] Allergy Seizure Verified 08/16/20 22:47 amoxicillin [Amoxicillin] AdvReac Nausea and Verified 08/16/20 22:47 Vomiting Home Meds: Home Meds ALPRAZolam [Alprazolam] 1 mg PO ASDIRECTED PRN 01/30/20 [History] Divalproex Sodium [Divalproex Sodium ER] 125 mg PO BID 01/30/20 [History] Potassium Citrate [Potassium Citrate ER] 20 meq PO DAILY 01/30/20 [History] amLODIPine Besylate [Amlodipine Besylate] 5 mg PO DAILY 01/30/20 [History] Aspirin 325 mg PO DAILY 08/16/20 [History] Cholecalciferol (Vitamin D3) [Vitamin D] 5,000 unit PO DAILY 08/16/20 [History] Dextroamphetamine/Amphetamine [Adderall 10 mg Tablet] 1 tab PO DAILY 08/16/20 [History] Divalproex Sodium [Divalproex Sodium ER] 250 mg PO DAILY 08/16/20 [History] Estrogens, Conjugated [Premarin] 0.3 mg PO DAILY 08/16/20 [History] Folic Acid 1 mg PO DAILY 08/16/20 [History] Furosemide 40 mg PO DAILY 08/16/20 [History] Metoprolol Succinate [Toprol Xl] 100 mg PO DAILY 08/16/20 [History] Gabapentin [Neurontin] 100 mg PO TID #90 cap 08/17/20 [Rx] Past Medical History HEENT History: Reports: Other (See Below) Other HEENT History: recent otitis media Cardiovascular History: Reports: Hypertension Respiratory History: Reports: Pneumonia, Recurrent, Other (See Below) Other Respiratory History: Intubated Genitourinary History: Reports: Dialysis, UTI, Recurrent, Other (See Below) Other Genitourinary History: currently has a dialysis port right chest which is being removed next week (09-20-19) 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: Musculoskeletal History: Reports: Arthritis, Fracture Psychiatric History: Reports: Anxiety, Bipolar, Depression Endocrine/Metabolic History: Reports: Obesity/BMI 30+ - Infectious Disease History Infectious Disease History: Reports: Chicken Pox - Past Surgical History Cardiovascular Surgical History: Reports: Other (See Below) Other Cardiovascular Surgeries/Procedures: angio Female Surgical History: Reports: Hysterectomy Social & Family History - Tobacco Use Tobacco Use Status *Q: Light Tobacco User Years of Tobacco use: 30 Packs/Tins Daily: 0.3 - Caffeine Use Caffeine Use: Reports: Tea - Recreational Drug Use Recreational Drug Use: No Review of Systems - Review of Systems Review Of Systems: See Below Constitutional: Reports: No Symptoms Eyes: Reports: No Symptoms Ears: Reports: No Symptoms Nose: Reports: No Symptoms Mouth/Throat: Reports: No Symptoms Respiratory: Reports: No Symptoms Cardiovascular: Reports: No Symptoms GI/Abdominal: Reports: No Symptoms Genitourinary: Reports: No Symptoms Musculoskeletal: Reports: Leg Pain (Bilateral), Foot Pain (Bilateral) Skin: Reports: No Symptoms Neurological: Reports: Difficulty Walking (Due to leg pain bilaterally extending into the feet.) Psychiatric: Reports: Depression, Anxiety ED EXAM, GENERAL - Physical Exam Exam: See Below Exam Limited By: No Limitations General Appearance: Alert, Anxious, Moderate Distress Eye Exam: Bilateral Eye: EOMI, PERRL Head: Atraumatic, Normocephalic Neck: Normal Inspection, Supple Respiratory/Chest: No Respiratory Distress, Lungs Clear, Normal Breath Sounds Cardiovascular: Normal Peripheral Pulses, Regular Rate, Rhythm, No Murmur Peripheral Pulses: 2+: Radial (L), Radial (R), Posterior Tibial (L), Posterior Tibial (R) GI/Abdominal: Normal Bowel Sounds, Soft, Non-Tender Extremities: Normal Inspection, Normal Range of Motion, Non-Tender, No Pedal Edema, Normal Capillary Refill Neurological: Alert, Oriented, Normal Cognition, No Motor/Sensory Deficits Psychiatric: Anxious, Depressed Mood, Tearful Skin Exam: Warm, Dry, Intact, Normal Color Lymphatic: No Adenopathy Course - Vital Signs Last Recorded V/S: Last Vital Signs Temp 36.1 C 08/16/20 22:51 Pulse 66 08/16/20 22:51 Resp 16 08/16/20 22:51 BP 149/72 H 08/16/20 22:51 Pulse Ox 97 08/16/20 22:51 - Orders/Labs/Meds Labs: Laboratory Tests 08/16/20 08/16/20 08/16/20 Range/Units 23:52 23:52 23:52 WBC 8.9 (4.5-11.0) K/uL RBC 3.38 (3.30-5.50) M/uL Hgb 12.1 D (12.0-15.0) g/dL Hct 37.8 (36.0-48.0) % MCV 112 H (80-98) fL MCH 36 H (27-31) pg MCHC 32 (32-36) % Plt Count 288 (150-400) K/uL Neut % (Auto) 65 (36-66) % Lymph % (Auto) 23 L (24-44) % [place] % (Auto) 6 (2-6) % Eos % (Auto) 5 H (2-4) % Baso % (Auto) 0 (0-1) % ESR 12 (0-25) mm/hr Sodium 143 (140-148) mmol/L Potassium 4.2 (3.6-5.2) mmol/L Chloride 105 (100-108) mmol/L Carbon Dioxide 28 (21-32) mmol/L Anion Gap 10.1 (5.0-14.0) mmol/L BUN 21 H D (7-18) mg/dL Creatinine 1.0 (0.6-1.0) mg/dL Est Cr Clr Drug Dosing 44.05 mL/min Estimated GFR (MDRD) 57 L (>60) Glucose 95 (74-106) mg/dL Uric Acid 9.4 H (2.6-6.2) mg/dL Calcium 8.9 (8.5-10.1) mg/dL Total Bilirubin 0.1 L D (0.2-1.0) mg/dL AST 17 D (15-37) U/L ALT 21 (12-78) U/L Alkaline Phosphatase 71 (46-116) U/L C-Reactive Protein 1.07 H (0.0-0.3) mg/dL Total Protein 6.4 (6.4-8.2) g/dL Albumin 3.2 L (3.4-5.0) g/dL Globulin 3.2 (2.3-3.5) g/dL Albumin/Globulin Ratio 1.0 L (1.2-2.2) Vitamin D 25-Hydroxy (30-100) ng/mL 08/16/20 Range/Units 23:52 WBC (4.5-11.0) K/uL RBC (3.30-5.50) M/uL Hgb (12.0-15.0) g/dL Hct (36.0-48.0) % MCV (80-98) fL MCH (27-31) pg MCHC (32-36) % Plt Count (150-400) K/uL Neut % (Auto) (36-66) % Lymph % (Auto) (24-44) % Crow[place] % (Auto) (2-6) % Eos % (Auto) (2-4) % Baso % (Auto) (0-1) % ESR (0-25) mm/hr Sodium (140-148) mmol/L Potassium (3.6-5.2) mmol/L Chloride (100-108) mmol/L Carbon Dioxide (21-32) mmol/L Anion Gap (5.0-14.0) mmol/L BUN (7-18) mg/dL Creatinine (0.6-1.0) mg/dL Est Cr Clr Drug Dosing mL/min Estimated GFR (MDRD) (>60) Glucose (74-106) mg/dL Uric Acid (2.6-6.2) mg/dL Calcium (8.5-10.1) mg/dL Total Bilirubin (0.2-1.0) mg/dL AST (15-37) U/L ALT (12-78) U/L Alkaline Phosphatase (46-116) U/L C-Reactive Protein (0.0-0.3) mg/dL Total Protein (6.4-8.2) g/dL Albumin (3.4-5.0) g/dL Globulin (2.3-3.5) g/dL Albumin/Globulin Ratio (1.2-2.2) Vitamin D 25-Hydroxy 97.4 (30-100) ng/mL Meds: Medications Discontinued Medications Generic Name Dose Route Start Last Admin Trade Name Freq PRN Reason Stop Dose Admin Gabapentin 100 mg 08/17/20 00:23 08/17/20 00:34 Neurontin PO 08/17/20 00:24 100 mg ONETIME ONE Administration - Re-Assessments/Exams Free Text/Narrative Re-Assessment/Exam: 08/17/20 00:52 I reviewed the patient's labs. Her CBC and comprehensive metabolic panel are unremarkable. Her CRP is slightly elevated at 1.03. Her ESR is normal. Her vitamin D level is at the upper end of normal which is surprising considering the enormous amount of intake she has had over the last 3 weeks. Uric acid is also normal. Her symptoms are most likely due to developing peripheral neuropathy, however, I am not sure what what is causing these symptoms to come on. Patient was given gabapentin 100 mg by mouth. My plan is to continue her on this 3 times a day if it is effective in treating her symptoms. Certainly does not appear that she is having any acute flare of gout or even osteoarthritis with her mild elevation of CRP and normal ESR. There is no sign for infection. 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 I would like you to follow-up with her primary care provider for further evaluation of the peripheral neuropathy if it continues. The patient will likely need to have electromyelograms is a formal evaluation. If the gabapentin is ineffective we may need to increase that to a higher dose in the future. Indications return to the ED were discussed and the patient was discharged in satisfactory condition. Departure - Departure Time of Disposition: 01:05 Disposition: Home, Self-Care 01 Clinical Impression: Peripheral neuropathy Qualifiers: Peripheral neuropathy type: polyneuropathy, unspecified Qualified Code(s): G62.9 - Polyneuropathy, unspecified - Discharge Information *PRESCRIPTION DRUG MONITORING PROGRAM REVIEWED*: Not Applicable *COPY OF PRESCRIPTION DRUG MONITORING REPORT IN PATIENT JEANNETTE: Not Applicable Instructions: Peripheral Neuropathy Referrals: Annelise Hua PA-C [Primary Care Provider] - Forms: ED Department Discharge Care Plan Goals: I would like you to follow-up with your primary care provider within the next week for reevaluation of your lower extremity pain. My plan is to have you on the gabapentin 100 mg 3 times a day to control the pain arising from the nerves of the lower extremities. We may need to increase this if it is not sufficient at controlling your pain. Your physician may want to proceed with an electromy elogram which looks at the electrical conductivity of the nerves. This is usually done by neurology. There is no evidence in your work-up today that you have a flare of gout or even arthritis as your inflammatory markers are not elevated. In addition there is no evidence for infection. You may continue to take Tylenol, ibuprofen, or both with the gabapentin to control your pain. Sepsis Event Note (ED) - Evaluation Sepsis Screening Result: No Definite Risk - Focused Exam Vital Signs: Vital Signs Temp Pulse Resp BP Pulse Ox 08/16/20 22:51 36.1 C 66 16 149/72 H 97 08/16/20 22:40 36.1 C 66 16 149/72 H 97 - Problem List & Annotations (1) Peripheral neuropathy SNOMED Code(s): 955340092 Code(s): G62.9 - POLYNEUROPATHY, UNSPECIFIED Status: Acute Priority: Medium Current Visit: Yes Qualifiers: Peripheral neuropathy type: polyneuropathy, unspecified Qualified Code(s): G62.9 - Polyneuropathy, unspecified - Problem List Review Problem List Initiated/Reviewed/Updated: Yes
[2020-08-17] MEDS ORDERED: Gabapentin 100 MG Cap PO ONE (00:23)
== END 2020-08-17 01:28 | disposition home or self-care (01) ==
LOC: JP.ED 22:21
DX: G62.9 Polyneuropathy, unspecified (principal); I10 Essential (primary) hypertension; E66.9 Obesity, unspecified; Z68.38 Body mass index [BMI] 38.0-38.9, adult; Z88.0 Allergy status to penicillin; Z88.8 Allergy status to other drugs, medicaments and biological substances
CPT/HCPCS: 36415; 80053; 82306; 84550; 85025; 85651; 86140; 99283; A9270

== ENCOUNTER 2021-01-18 23:23 | Emergency (ER) | payer OTHER ==
[2021-01-18] MEDS ORDERED: Potassium Chloride 20 MEQ Tab.ER PO ONE (23:57)
--- NOTE | 2021-01-19 02:10 | EDM.PDOCBH ---
ED HPI GENERAL MEDICAL PROBLEM - General Chief Complaint: Behavioral/Psych Stated Complaint: MENTAL Time Seen by Provider: 01/18/21 23:50 Source of Information: Reports: Patient History Limitations: Reports: No Limitations - History of Present Illness INITIAL COMMENTS - FREE TEXT/NARRATIVE: Shefali is a 60-year-old female brought in by law enforcement for evaluation of alcohol intoxication and suicide ideation. Patient is fairly well-known to me from prior visits and has a history for bipolar disorder with depressed mood. She is on Depakote right now for treatment of her depression and bipolar he had called her psychiatrist, Dr. Fofana today to ask about increasing her Depakote because she still having significant depressed mood. The nurse triage line asked her questions that led to them believing that she was suicidal and while they were on the phone with her, they contacted law enforcement who arrived at her house. The patient had been drinking Chardonnay with her sister at the casino up in [place] and was intoxicated. On arrival, she is able to converse freely without any difficulty. She is cognitively intact and denied any suicidal ideation. 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 Because of the alcohol intoxication, the patient was a little bit more labile with her mood tonight and was very tearful in talking about her strained relationship with her daughter and inability to see her grandchildren. She did report that when the argument occurred with her daughter that when she stepped out of her daughter's apartment her daughter called law enforcement and they ended up arresting her for DWI because the keys to her vehicle were sitting on the cdl team truck driver's seat and she was intoxicated by personal breathalyzer test. She is still undergoing court for this offense. She has been inquiring about being started on SSRI with her Dr. Fofana who is a psychiatrist out of [place] and because she is on the Depakote, SSRIs are not advised. The patient reports that she has been experiencing chronic fatigue since being diagnosed with a nonischemic cardiomyopathy last year. 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 - Related Data Allergies Allergy/AdvReac Type Severity Reaction Status Date / Time bupropion [From Wellbutrin] Allergy Seizure Verified 01/18/21 23:35 amoxicillin [Amoxicillin] AdvReac Nausea and Verified 01/18/21 23:35 Vomiting Home Meds: Home Meds ALPRAZolam [Alprazolam] 1 mg PO ASDIRECTED PRN 01/30/20 [History] Divalproex Sodium [Divalproex Sodium ER] 125 mg PO BEDTIME 01/30/20 [History] Potassium Citrate [Potassium Citrate ER] 20 meq PO DAILY 01/30/20 [History] amLODIPine Besylate [Amlodipine Besylate] 5 mg PO DAILY 01/30/20 [History] Aspirin 325 mg PO DAILY 08/16/20 [History] Cholecalciferol (Vitamin D3) [Vitamin D] 5,000 unit PO DAILY 08/16/20 [History] Dextroamphetamine/Amphetamine [Adderall 10 mg Tablet] 1 tab PO DAILY 08/16/20 [History] Divalproex Sodium [Divalproex Sodium ER] 250 mg PO DAILY 08/16/20 [History] Folic Acid 1 mg PO DAILY 08/16/20 [History] Furosemide 40 mg PO DAILY 08/16/20 [History] Metoprolol Succinate [Toprol Xl] 100 mg PO DAILY 08/16/20 [History] Gabapentin [Neurontin] 100 mg PO TID PRN 01/18/21 [History] Past Medical History HEENT History: Reports: Impaired Vision Other HEENT History: recent otitis media Cardiovascular History: Reports: Cardiomyopathy, Hypertension Respiratory History: Reports: Pneumonia, Recurrent, Other (See Below) Other Respiratory History: Intubated Gastrointestinal History: Reports: Colon Polyp, GERD Genitourinary History: Reports: Dialysis, UTI, Recurrent, Other (See Below) Other Genitourinary History: currently has a dialysis port right chest which is being removed next week (09-20-19) 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: Endometriosis, Musculoskeletal History: Reports: Arthritis, Back Pain, Chronic, Fracture, Osteoarthritis, Other (See Below) Other Musculoskeletal History: chronic joint pains Neurological History: Reports: Seizure Psychiatric History: Reports: Addiction, Anxiety, Bipolar, Depression, Other (See Below) Other Psychiatric History: insomonia Endocrine/Metabolic History: Reports: Obesity/BMI 30+, Vitamin D Deficiency - Infectious Disease History Infectious Disease History: Reports: Chicken Pox, Hepatitis C - Past Surgical History Cardiovascular Surgical History: Reports: Other (See Below) Other Cardiovascular Surgeries/Procedures: angio GI Surgical History: Reports: Cholecystectomy, Colonoscopy, Polypectomy Female Surgical History: Reports: Hysterectomy Social & Family History - Tobacco Use Tobacco Use Status *Q: Current Every Day Tobacco User Years of Tobacco use: 40 Packs/Tins Daily: 0.2 - Caffeine Use Caffeine Use: Reports: Coffee - Alcohol Use Date of Last Drink: 01/18/21 - Recreational Drug Use Recreational Drug Use: No ED ROS GENERAL - Review of Systems Review Of Systems: See Below Constitutional: Reports: No Symptoms HEENT: Reports: No Symptoms Respiratory: Reports: No Symptoms Cardiovascular: Reports: Dyspnea on Exertion Endocrine: Reports: Fatigue (She has been dealing with chronic fatigue since being diagnosed with a nonischemic cardiomyopathy.) GI/Abdominal: Reports: No Symptoms : Reports: No Symptoms Musculoskeletal: Reports: No Symptoms Skin: Reports: No Symptoms Neurological: Reports: No Symptoms Psychiatric: Reports: Agitation, Anxiety, Depression (Bipolar disorder with depressed mood. He also is intoxicated from drinking Chardonnay today), Mood Lability (Due to her bipolar disorder. She had inquired with Dr. Fofana about increasing her Depakote to further stabilize her mood. She reports that she does feel better since starting the Depakote but feels it could do more.). Denies: Homicidal Ideation, Suicidal Ideation (Patient adamantly denies any suicidal ideation) Hematologic/Lymphatic: Reports: No Symptoms Immunologic: Reports: No Symptoms ED EXAM, BEHAVIORAL HEALTH - Physical Exam Exam: See Below Exam Limited By: No Limitations General Appearance: Alert, No Apparent Distress Eye Exam: Bilateral Eye: EOMI, PERRL Throat/Mouth: Normal Inspection, Normal Lips, Normal Oropharynx, Normal Voice, No Airway Compromise Head: Atraumatic, Normocephalic Neck: Normal Inspection, Supple, Non-Tender Respiratory/Chest: No Respiratory Distress, Lungs Clear, Rhonchi (Rhonchi in both bases). No: Decreased Breath Sounds Cardiovascular: Normal Peripheral Pulses, Regular Rate, Rhythm, No Murmur GI/Abdominal: Normal Bowel Sounds, Soft, Non-Tender Back Exam: Normal Inspection Extremities: Normal Inspection, Normal Range of Motion, Normal Capillary Refill Neurological: Alert, Normal Mood/Affect, Normal Cognition, No Motor/Sensory Deficits Psychiatric: Depressed Mood, Tearful, Agitated. No: Suicidal Plan, Suicidal Thoughts Skin Exam: Warm, Dry, Intact, Normal color COURSE, BEHAVIORAL HEALTH COMP - Course Vital Signs: Last Vital Signs Temp 36.2 C 01/18/21 23:38 Pulse 66 01/18/21 23:38 Resp 18 01/18/21 23:38 BP 131/78 01/18/21 23:38 Pulse Ox 96 01/18/21 23:38 Orders, Labs, Meds: Laboratory Tests 01/19/21 01/19/21 01/19/21 Range/Units 01:00 01:00 01:00 WBC 9.2 (4.5-11.0) K/uL RBC 4.56 (3.30-5.50) M/uL Hgb 15.5 H D (12.0-15.0) g/dL Hct 44.8 (36.0-48.0) % MCV 98 (80-98) fL MCH 34 H (27-31) pg MCHC 35 (32-36) % Plt Count 301 (150-400) K/uL Sodium 137 L (140-148) mmol/L Potassium 3.8 (3.6-5.2) mmol/L Chloride 96 L (100-108) mmol/L Carbon Dioxide 26 (21-32) mmol/L Anion Gap 18.8 H (5.0-14.0) mmol/L BUN 12 (7-18) mg/dL Creatinine 0.7 (0.6-1.0) mg/dL Est Cr Clr Drug Dosing 62.92 mL/min Estimated GFR (MDRD) > 60 (>60) Glucose 94 (74-106) mg/dL Calcium 9.0 (8.5-10.1) mg/dL Total Bilirubin 0.5 D (0.2-1.0) mg/dL AST 184 H D (15-37) U/L ALT 87 H (12-78) U/L Alkaline Phosphatase 102 (46-116) U/L Total Protein 8.0 (6.4-8.2) g/dL Albumin 3.7 (3.4-5.0) g/dL Globulin 4.3 H (2.3-3.5) g/dL Albumin/Globulin Ratio 0.9 L (1.2-2.2) Urine Color (YELLOW) Urine Appearance (CLEAR) Urine pH (5.0-8.0) Ur Specific [place] (1.008-1.030) Urine Protein (NEGATIVE) mg/dL Urine Glucose (UA) (NEGATIVE) mg/dL Urine Ketones (NEGATIVE) mg/dL Urine Occult Blood (NEGATIVE) Urine Nitrite (NEGATIVE) Urine Bilirubin (NEGATIVE) Urine Urobilinogen (0.2-1.0) EU/dL Ur Leukocyte Esterase (NEGATIVE) Urine RBC (0-5) Urine WBC (0-5) Ur Epithelial Cells Amorphous Sediment Urine Bacteria Urine Mucus Salicylates 3.7 (2.0-20.0) mg/dL Acetaminophen 0.0 L (10.0-30.0) ug/mL Ethyl Alcohol mg/dL 01/19/21 01/19/21 Range/Units 01:00 01:14 WBC (4.5-11.0) K/uL RBC (3.30-5.50) M/uL Hgb (12.0-15.0) g/dL Hct (36.0-48.0) % MCV (80-98) fL MCH (27-31) pg MCHC (32-36) % Plt Count (150-400) K/uL Sodium (140-148) mmol/L Potassium (3.6-5.2) mmol/L Chloride (100-108) mmol/L Carbon Dioxide (21-32) mmol/L Anion Gap (5.0-14.0) mmol/L BUN (7-18) mg/dL Creatinine (0.6-1.0) mg/dL Est Cr Clr Drug Dosing mL/min Estimated GFR (MDRD) (>60) Glucose (74-106) mg/dL Calcium (8.5-10.1) mg/dL Total Bilirubin (0.2-1.0) mg/dL AST (15-37) U/L ALT (12-78) U/L Alkaline Phosphatase (46-116) U/L Total Protein (6.4-8.2) g/dL Albumin (3.4-5.0) g/dL Globulin (2.3-3.5) g/dL Albumin/Globulin Ratio (1.2-2.2) Urine Color Yellow (YELLOW) Urine Appearance Slightly cloudy A (CLEAR) Urine pH 5.0 (5.0-8.0) Ur Specific [place] 1.010 (1.008-1.030) Urine Protein Negative (NEGATIVE) mg/dL Urine Glucose (UA) Negative (NEGATIVE) mg/dL Urine Ketones Negative (NEGATIVE) mg/dL Urine Occult Blood Trace-lysed H (NEGATIVE) Urine Nitrite Negative (NEGATIVE) Urine Bilirubin Negative (NEGATIVE) Urine Urobilinogen 0.2 (0.2-1.0) EU/dL Ur Leukocyte Esterase Negative (NEGATIVE) Urine RBC 0-5 (0-5) Urine WBC 0-5 (0-5) Ur Epithelial Cells Few Amorphous Sediment Not seen Urine Bacteria Many Urine Mucus Not seen Salicylates (2.0-20.0) mg/dL Acetaminophen (10.0-30.0) ug/mL Ethyl Alcohol 183 mg/dL Medications Discontinued Medications Generic Name Dose Route Start Last Admin Trade Name Freq PRN Reason Stop Dose Admin Potassium Chloride 40 meq 01/18/21 23:57 01/19/21 00:36 Potassium Chloride 20 Meq Tab.Er PO 01/18/21 23:58 Not Given ONETIME ONE Discharge vs Psych Eval/Treatment:: 01/19/21 02:22 although the patient is intoxicated, this is probably not beyond her usual daily intake. She has not suicidal or homicidal. She does have bipolar disorder with depressed mood but is not any worse than she normally is. I do not see any reason to admit her at this time and law enforcement is willing to take her back to her residence. Departure - Departure Time of Disposition: 02:09 Disposition: Home, Self-Care 01 Clinical Impression: Alcohol intoxication, Dehydration, Bipolar disorder with depression - Discharge Information Instructions: Managing Bipolar Disorder, Alcohol Intoxication, [id number], Dehydration, Adult, [id number] Referrals: PCP,None [Primary Care Provider] - Forms: ED Department Discharge Care Plan Goals: Make sure to increase your fluid intake over the next couple of days to replete what you have lost in this high heat and humidity. She should be drinking about 10 ounces of water every hour you are awake. Good luck with dealing with your family issues. Take care in God bless. Sepsis Event Note (ED) - Evaluation Sepsis Screening Result: No Definite Risk - Focused Exam Vital Signs: Vital Signs Temp Pulse Resp BP Pulse Ox 01/18/21 23:38 36.2 C 66 18 131/78 96
== END 2021-01-19 02:14 | disposition home or self-care (01) ==
LOC: JP.ED 23:23
DX: F10.129 Alcohol abuse with intoxication, unspecified (principal); E86.0 Dehydration; F31.9 Bipolar disorder, unspecified; I10 Essential (primary) hypertension; M19.90 Unspecified osteoarthritis, unspecified site; E66.9 Obesity, unspecified; Z68.36 Body mass index [BMI] 36.0-36.9, adult; Y90.6 Blood alcohol level of 120-199 mg/100 ml; Z72.0 Tobacco use; Z88.8 Allergy status to other drugs, medicaments and biological substances; Z88.0 Allergy status to penicillin; Z79.82 Long term (current) use of aspirin; Z79.899 Other long term (current) drug therapy
CPT/HCPCS: 36415; 80053; 80143; 80179; 80307; 81001; 85027; 99285

== ENCOUNTER 2024-01-04 06:31 | Day surgery (SDC) | payer OTHER ==
[2024-01-04] MEDS ORDERED: fentaNYL 50 MCG/ML SDV ONE (07:14)
[2024-01-04] MEDS ORDERED: Midazolam 1 MG/ML 2 ML SDV ONE (07:14)
[2024-01-04] MEDS ORDERED: Propofol 200 MG/20 ML SDV ONE ×2 (07:14→08:03)
[2024-01-04] MEDS: Lactated Ringers 1,000 ML IV SCH (07:22)
[2024-01-04] MEDS ORDERED: Lactated Ringers 1,000 ML IV SCH (09:15)
== END 2024-01-04 09:34 | disposition home or self-care (01) ==
LOC: JP.SDS 06:31
PROVIDERS: ATTEND Family Medicine
DX: Z12.11 Encounter for screening for malignant neoplasm of colon (principal); D12.0 Benign neoplasm of cecum; D12.2 Benign neoplasm of ascending colon; D12.4 Benign neoplasm of descending colon; D12.5 Benign neoplasm of sigmoid colon; D12.8 Benign neoplasm of rectum; J44.9 Chronic obstructive pulmonary disease, unspecified; I10 Essential (primary) hypertension; F31.9 Bipolar disorder, unspecified; Z80.0 Family history of malignant neoplasm of digestive organs
CPT/HCPCS: 00811; 45380; 45381; 45385; 88305; J2250; J2704; J3010; J7120

== ENCOUNTER 2025-01-18 08:31 | Day surgery (SDC) | payer OTHER ==
[2025-01-18] MEDS ORDERED: fentaNYL 50 MCG/ML SDV ONE (09:23)
[2025-01-18] MEDS ORDERED: Midazolam 1 MG/ML 2 ML SDV ONE (09:23)
[2025-01-18] MEDS ORDERED: Propofol 200 MG/20 ML SDV ONE (09:23)
[2025-01-18] MEDS: Lactated Ringers 1,000 ML IV SCH (09:32)
== END 2025-01-18 11:55 | disposition home or self-care (01) ==
LOC: JP.SDS 08:31
PROVIDERS: ATTEND Surgery
DX: Z12.11 Encounter for screening for malignant neoplasm of colon (principal); I10 Essential (primary) hypertension; J44.9 Chronic obstructive pulmonary disease, unspecified; Z86.0100 Personal history of colon polyps, unspecified
CPT/HCPCS: 00812; 45378; J2250; J2704; J3010; J7120